=== PATIENT | female | born 1945 | race Caucasian/White ===

== ENCOUNTER 2017-09-21 11:33 | Emergency (ER) | payer MEDICARE ==
[~2017-09-21] VITALS: Ht 165.1 cm; Wt 65.0 kg
[2017-09-21 11:35] VITALS: BP 133/79; PULSE 79; RESP 14; TEMP 98.1; O2SAT 97
--- NOTE | 2017-09-21 12:25 | RADRPT ---
EXAM DATE/TIME: 09/21/2017 12:13 [place] COMPARISON: No previous studies available for comparison. INDICATIONS : Right lateral ankle pain after twisting it today. MEDICAL HISTORY : Previous fractures to the right ankle. SURGICAL HISTORY : None. ENCOUNTER: Initial ACUITY: 1 day PAIN SCORE: 9/10 LOCATION: Right lateral ankle. FINDINGS: 3 views of the right ankle demonstrate a transverse fracture involving the distal fibula with extensi on to the ankle mortise. Ankle mortise is preserved and the talar dome is intact. There is a joint ef fusion present. Soft tissues are normal. CONCLUSION: Nondisplaced fracture of the distal fibula with extension to the level of the ankle mortise. No evide nce of ankle mortise disruption. Joint effusion is present.. Ivette Mauro MD on September 21, 2017 at 12:21 Board Certified Radiologist. This report was verified electronically.
[2017-09-21] MEDS ORDERED: TRAM50TA PO (12:43)
[2017-09-21] MEDS ORDERED: WALKER/ADULT/FO1 MIS (12:46)
--- NOTE | 2017-09-21 12:46 | PD ---
HPI Chief Complaint: Injury Time Seen by Provider: 11:48 Travel History International Travel<30 days: No Contact w/Intl Traveler<30days: No Traveled to known affect area: No History of Present Illness HPI 72-year-old male presents emergency department with complaint of right ankle pain and an abrasion to her left upper wolff after stepping off an uneven edge of a walkway and twisting her ankle today. She did fall. She denies hitting her head or loss of consciousness. Denies neck pain or back pain. Denies anticoagulant therapy. Denies chest pain, shortness of breath, abdominal pain, vomiting. Has not taken any medications or tried any treatments to alleviate to her symptoms. Rates pain 8/10. Describes it as a throbbing sensation. Aggravated with palpation and movement. Better at rest. Unknown tetanus status. Primary care provider is in [place]. No known allergies. Denies significant past medical history. Has no other medical complaints. No other modifying factors or associated signs and symptoms. PFSH Past Medical History ?: Not Social History Tobacco Use: No Allergies-Medications (Allergen,Severity, Reaction): Coded Allergies: No Known Allergies (Unverified , 09/21/17) Reported Meds & Prescriptions Reported Meds & Active Scripts Active Walker/Adult/Folding (Device) 1 Mis Mis Ea .XX DIRECTED Tramadol (Tramadol HCl) 50 Mg Tab 50 Mg PO Q4H PRN Review of Systems Except as stated in HPI: all other systems reviewed are Neg Physical Exam Narrative GENERAL: Well-nourished, well-developed female patient, in no acute distress SKIN: Warm and dry. Abrasion noted to left upper wolff area; without drainage; without erythema, edema. HEAD: Atraumatic. Normocephalic. EYES: Pupils equal and round. No scleral icterus. No injection or drainage. ENT: Mucosa pink and moist. Airway patent. NECK: Trachea midline. CARDIOVASCULAR: Regular rate. RESPIRATORY: No accessory muscle use. GASTROINTESTINAL: Flat. MUSCULOSKELETAL: Right ankle with point tenderness to the lateral malleolar zone with palpation; minimal swelling to the lateral aspect; no obvious deformity. Right Lower extremity is supple and nontense with 2+ pedal pulse and sensory intact. Left Knee with full range of motion and patient denies knee pain. No obvious deformities. No clubbing. No cyanosis. No edema. NEUROLOGICAL: Awake and alert. Oriented 3. No obvious cranial nerve deficits. Motor grossly within normal limits. Normal speech. PSYCHIATRIC: Appropriate mood and affect; insight and judgment normal. Data Data Last Documented VS Vital Signs Date Time Temp Pulse Resp B/P (MAP) Pulse Ox O2 Delivery O2 Flow Rate FiO2 09/21/17 11:35 98.1 79 14 133/79 (97) 97 Orders Orders Ankle, Complete ([id number]) (09/21/17 12:03) Ed Discharge Order (09/21/17 12:54) Case Management Consult (09/21/17 ) MDM Medical Decision Making Medical Screen Exam Complete: Yes Emergency Medical Condition: Yes Medical Record Reviewed: Yes Differential Diagnosis Ankle fracture, ankle sprain, ankle injury, abrasion, fall Narrative Course 72-year-old female with right ankle injury after mechanical fall. I offered the patient pain control and she declined. Right ankle x-ray ordered. 1239: Ankle x-ray concludes: Ankle X-Ray 09/21/17 1203 Signed Impressions: Service Date/Time: Thursday, September 21, 2017 12:13 - CONCLUSION: Nondisplaced fracture of the distal fibula with extension to the level of the ankle mortise. No evidence of ankle mortise disruption. Joint effusion is present.. Ivette Mauro MD Due to copy of the x-ray report. Steve splint and crutches ordered. A consult was made to case management for the patient to receive a walker prior to discharge. Patient was provided with a walker. Instructed patient to follow up with orthopedics. Instructed patient to follow up with primary care provider. Patient verbalizes understanding and agreement with treatment plan. Patient is medically cleared and stable for discharge. Discussed reasons to return to the emergency department. Patient agrees with treatment plan. The patients vital signs are stable and the patient is stable for outpatient follow- up and treatment. Patient discharged home, stable and in no acute distress. Diagnosis Primary Impression: Ankle fracture, right Qualified Codes: S82.891A - Other fracture of right lower leg, initial encounter for closed fracture Additional Impression: Abrasion, left lower leg, initial encounter Referrals: Frances Medrano DPM [employer] Primary Care Physician Patient Instructions: Ankle Fracture (ED), Crutch Instructions (ED), General Instructions Additional Instructions: Tylenol or ibuprofen as directed and as needed for pain and inflammation Rest, ice, compress, and elevate extremity to decrease pain and inflammation Splint for support; do not remove splint until cleared Crutches/walker/wheelchair for support Avoid aggravating activity; increase activity as tolerated Follow-up with primary care provider Return to the emergency department immediately with worsening of symptoms Med/Other Pt SpecificInfo: Prescription(s) given Scripts Walker/Adult/Folding (Walker/Adult/Folding) 1 Mis Mis EA .XX DIRECTED, #1 0 Refills Prov: Taylor Parker 09/21/17 Tramadol (Tramadol) 50 Mg Tab 50 MG PO Q4H Y for PAIN, #18 TAB 0 Refills Prov: Taylor Parker 09/21/17 Disposition: 01 DISCHARGE HOME Condition: Stable Taylor Parker Sep 21, 2017 12:46
== END 2017-09-21 15:39 | disposition home or self-care (01) ==
LOC: NEPD 11:33
DX: S82.831A Other fracture of upper and lower end of right fibula, initial encounter for closed fracture (principal); S80.812A Abrasion, left lower leg, initial encounter; X50.1XXA Overexertion from prolonged static or awkward postures, initial encounter
CPT/HCPCS: 29515; 73610